=== PATIENT | female | born 1990 | race African-American/Black ===

== ENCOUNTER 2018-09-27 14:48 | Emergency (ER) | payer MEDICAID ==
[~2018-09-27] VITALS: Ht 165.1 cm; Wt 81.0 kg
[~2018-09-27 14:48] MED LIST: TRAM50TA3
[2018-09-27 16:38] LABS: CLARITY URINE CLEAR (CLEAR); COLOR URINE YELLOW (YELLOW); KETONES URINE 4+ (NEGATIVE); LEUKOCYTE ESTERASE URINE NEGATIVE (NEGATIVE); NITRITE URINE NEGATIVE (NEGATIVE); OCCULT BLOOD URINE 1+ (NEGATIVE); PROTEIN URINE TRACE (NEGATIVE); SPECIFIC GRAVITY URINE 1.034 (1.005-1.030)
[2018-09-27] MEDS ORDERED: FAMOTIDINE 20MG/2ML VIAL IV STA (17:49)
[2018-09-27] MEDS ORDERED: SODIUM CHLORIDE 0.9% 1,000 ML IV ONE ×2 (17:49→20:12)
[2018-09-27] MEDS ORDERED: ONDANSETRON HCL 4MG/2ML INJ IV STA (17:49)
[2018-09-27] MEDS ORDERED: LORAZEPAM 2MG/ML CPJ IV ONE (18:00)
[2018-09-27 18:40] LABS: *AMPHETAMINES SCREEN URINE NEGATIVE (NEGATIVE); PHENCYCLIDINE URINE SCREEN NEGATIVE (NEGATIVE)
[2018-09-27 18:41] LABS: *BARBITURATES SCREEN URINE NEGATIVE (NEGATIVE); *BENZODIAZEPINES SCREEN URINE NEGATIVE (NEGATIVE); *COCAINE SCREEN URINE NEGATIVE (NEGATIVE); CANNABINOID URINE SCREEN PRESUMTIVE POSITIVE (NEGATIVE); METHADONE URINE SCREEN NEGATIVE (NEGATIVE); OPIATES URINE SCREEN NEGATIVE (NEGATIVE)
[2018-09-27 18:48] LABS: HEMATOCRIT. 43.8 % (36.0-48.0); HEMOGLOBIN. 14.5 g/dL (12.0-16.0); MEAN CORPUSCULAR HEMOGLOBIN 32.2 pg (28.0-32.0); PLATELET 242 x1000/uL (130-400); RED BLOOD CELL COUNT 4.51 mill/uL (4.2-5.4); RED CELL DISTRIBUTION WIDTH 13.5 % (11.6-14.6)
[2018-09-27 18:57] LABS: CHLORIDE 107 mEq/L (98-107); INR 1.1; PROTHROMBIN TIME 11.5 sec (9.1-11.1)
[2018-09-27] MEDS ORDERED: IOHEXOL-300 100 ML BOTTLE ONE (19:56)
[2018-09-27] MEDS ORDERED: CEFTRIAXONE 1 G PREMIX 50 ML IV ONE (20:15)
[2018-09-27 22:09] VITALS: BP 111/60
[2018-09-27 22:18] LABS: PLATELET ESTIMATE NORMAL
== END 2018-09-27 23:41 | disposition home or self-care (01) ==
LOC: ER 14:48
DX: R10.33 Periumbilical pain (principal); E86.0 Dehydration; N39.0 Urinary tract infection, site not specified; F12.10 Cannabis abuse, uncomplicated; D72.829 Elevated white blood cell count, unspecified; R73.9 Hyperglycemia, unspecified; I10 Essential (primary) hypertension; K21.9 Gastro-esophageal reflux disease without esophagitis; F41.9 Anxiety disorder, unspecified; J45.909 Unspecified asthma, uncomplicated
CPT/HCPCS: 36415; 74177; 80053; 80305; 81003; 81025; 83690; 85025; 85610; 96361; 96365; 96375; 99284; J0696; J2060; J2405; J3490; J7030; Q9967; Z7610